=== PATIENT | male | born 2000 | race African-American/Black ===

== ENCOUNTER 2021-01-15 18:33 | Emergency (ER) | payer MEDICAID ==
[~2021-01-15] VITALS: Ht 177.8 cm; Wt 100.0 kg
[2021-01-15 18:45] VITALS: BP 157/108
[2021-01-15] MEDS ORDERED: MAGNESIUM/ALUMINUM HYDROXIDE/SIMETHICONE 30ML UDC PO STA (20:46)
[2021-01-15] MEDS ORDERED: ONDANSETRON 4MG ODT PO STA (20:46)
[2021-01-15] MEDS ORDERED: ACETAMINOPHEN 325MG TABLET PO STA (20:46)
[2021-01-15] MEDS ORDERED: LOPERAMIDE HCL 2MG CAPSULE PO ONE (21:00)
[2021-01-15 21:36] LABS: CHLORIDE 108 mEq/L (98-107)
[2021-01-15 21:57] LABS: HEMATOCRIT. 51.7 % (42.0-52.0); HEMOGLOBIN. 17.2 g/dL (14.0-18.0); MEAN CORPUSCULAR HEMOGLOBIN 30.3 pg (28.0-32.0); MEAN CORPUSCULAR VOLUME 90.9 fL (80.0-94.0); MEAN PLATELET VOLUME 8.4 fl (7.4-10.4); PLATELET 315 x1000/uL (130-400); RED BLOOD CELL COUNT 5.68 mill/uL (4.7-6.1); RED CELL DISTRIBUTION WIDTH 12.8 % (11.6-14.6)
[2021-01-15 22:06] LABS: INR 1.1; PROTHROMBIN TIME 11.5 sec (9.6-11.0)
[2021-01-15 22:26] LABS: PLATELET ESTIMATE NORMAL
[2021-01-15] MEDS ORDERED: SODIUM CHLORIDE 0.9% 1,000 ML IV NR (22:45)
[2021-01-15] MEDS ORDERED: IMOD MT (22:51)
== END 2021-01-15 23:01 | disposition home or self-care (01) ==
LOC: ER 18:33
DX: K52.9 Noninfective gastroenteritis and colitis, unspecified (principal); J45.909 Unspecified asthma, uncomplicated; Z86.16 Personal history of COVID-19
CPT/HCPCS: 36415; 80053; 83690; 85025; 85610; 93005; 99284; Q0162